=== PATIENT | female | born 2000 | race African-American/Black ===

== ENCOUNTER 2023-04-25 19:17 | Emergency (ER) | payer OTHER ==
[~2023-04-25] VITALS: Ht 162.6 cm; Wt 59.0 kg
--- NOTE | 2023-04-25 19:21 | NUR ---
[facility] ALS TO BED #8
[2023-04-25 19:37] VITALS: O2SAT 100
[2023-04-25 19:38] VITALS: BP 104/66; PULSE 90; RESP 18; TEMP 98.3; O2SAT 99
--- NOTE | 2023-04-25 19:41 | NUR ---
23YR OLD FEMALE BIB EMS C/O SYCOPAL ESPSIODE. PT IS A&OX4. DENIES SOB OR CP DENIES PAIN IN GENERAL. 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 DENIES KO. 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 THOMPSON BEE
[2023-04-25 20:48] VITALS: BP 101/60; PULSE 95; RESP 18; O2SAT 100
--- NOTE | 2023-04-25 20:50 | NUR ---
Patient discharged with v/s stable. Written and verbal after care instructions given and explained. Patient verbalized understanding. Ambulatory with steady gait. All questions addressed prior to discharge. Advised to follow up with PMD.
== END 2023-04-25 20:50 | disposition home or self-care (01) ==
LOC: MED 19:17
DX: R55 Syncope and collapse (principal); F12.90 Cannabis use, unspecified, uncomplicated
CPT/HCPCS: 81025; 93005; 99283